=== PATIENT | male | born 1950 | race Caucasian/White ===

== ENCOUNTER 2017-02-10 19:21 | Inpatient (IN) | payer SELFPAY ==
[2017-02-10 19:46] LABS: ADD MAN DIFF? NO
[2017-02-10 19:48] LABS: BASOPHILS % 0.2 % (0.0-2.0); EOSINOPHILS # 0.1 10^3/ul (0.0-0.5); EOSINOPHILS % 1.2 % (0.0-7.0); HEMATOCRIT 42.8 % (42.0-52.0); HEMOGLOBIN 14.8 g/dl (14.0-18.0); LYMPHOCYTES # 1.1 10^3/ul (0.8-2.9); LYMPHOCYTES % 9.1 % (15.0-51.0); MEAN CORPUSCULAR HEMOGLOBIN 30.8 pg (29.0-33.0); MEAN CORPUSCULAR HGB CONC 34.6 g/dl (32.0-37.0); MONOCYTE # 0.7 10^3/ul (0.3-0.9); MONOCYTES % 6.1 % (0.0-11.0); NEUTROPHIL # 9.7 10^3/ul (1.6-7.5); NEUTROPHILS % 83.1 % (39.0-77.0); PLATELET COUNT 178 10^3/UL (140-415); RED BLOOD COUNT 4.81 10^6/ul (4.70-6.10); RED CELL DISTRIBUTION WIDTH 12.9 % (11.5-14.5)
[2017-02-10 19:48] LABS: WHITE BLOOD COUNT 11.7 10^3/ul (4.8-10.8)
[2017-02-10] MEDS: SOD CHLORIDE 0.9% 500 ML IV (19:52)
[2017-02-10 20:03] LABS: PARTIAL THROMBOPLASTIN TIME 21.3 Sec (25.0-35.0); PROTIME 13.3 Sec (11.9-14.9)
[2017-02-10 20:10] LABS: ANION GAP 16 (8-16); BLOOD UREA NITROGEN 17 mg/dl (7-20); CALCIUM 9.3 mg/dl (8.4-10.2); CARBON DIOXIDE 27 mmol/L (21-31); CHLORIDE 102 mmol/L (97-110); CREATININE 1.24 mg/dl (0.61-1.24); GLUCOSE 128 mg/dl (70-220); POTASSIUM 3.5 mmol/L (3.5-5.1); SODIUM 141 mmol/L (135-144)
[2017-02-10 20:22] LABS: TROPONIN-I < 0.012 ng/ml (0.00-0.12)
[2017-02-10] MEDS ORDERED: ACETAMINOPHEN 325 MG TAB PO (21:30)
[2017-02-10] MEDS ORDERED: ONDANSETRON 4 MG INJ IV (21:30)
[2017-02-10 21:58] LABS: D-DIMER 602.73 ng/ml (<460)
[2017-02-10 22:13] LABS: C-REACTIVE PROTEIN < 0.5 mg/dl (0.0-0.9)
[2017-02-10 22:54] LABS: ERYTHROCYTE SEDIMENTATION RATE 8 mm/Hr (0-20)
[2017-02-11] MEDS ORDERED: DOCUSATE SODIUM 100 MG CAP PO
[2017-02-11] MEDS ORDERED: NACL 0.9% 3 ML SYG IV
[2017-02-11] MEDS ORDERED: ACETAMINOPHEN 325 MG TAB PO
[2017-02-11] MEDS ORDERED: BISACODYL (EC) 5 MG TAB PO
[2017-02-11] MEDS ORDERED: NITROGLYCERIN (SL) 0.4 MG TAB SL
[2017-02-11] MEDS: HEPARIN 5,000 UNIT/0.5 ML VIAL SC ×2 (00:26→06:10)
[2017-02-11 01:40] LABS: CREATINE KINASE 150 IU/L (23-200)
[2017-02-11 01:54] LABS: CK INDEX 1.3; CK-MB 1.93 ng/ml (0.0-2.4); TROPONIN-I < 0.012 ng/ml (0.00-0.12)
[2017-02-11] MEDS: IOHEXOL 100 ML (03:23)
[2017-02-11] MEDS: SOD CHLORIDE 0.9% 100 ML (03:23)
[2017-02-11 07:59] LABS: ADD MAN DIFF? NO
[2017-02-11 08:16] LABS: BASOPHILS % 0.2 % (0.0-2.0); EOSINOPHILS # 0.1 10^3/ul (0.0-0.5); EOSINOPHILS % 1.5 % (0.0-7.0); HEMATOCRIT 37.6 % (42.0-52.0); HEMOGLOBIN 13.1 g/dl (14.0-18.0); LYMPHOCYTES # 1.2 10^3/ul (0.8-2.9); LYMPHOCYTES % 13.6 % (15.0-51.0); MEAN CORPUSCULAR HEMOGLOBIN 30.9 pg (29.0-33.0); MEAN CORPUSCULAR HGB CONC 34.8 g/dl (32.0-37.0); MEAN CORPUSCULAR VOLUME 88.7 fl (82.0-101.0); MEAN PLATELET VOLUME 11.2 fl (7.4-10.4); MONOCYTE # 0.7 10^3/ul (0.3-0.9); MONOCYTES % 8.2 % (0.0-11.0); NEUTROPHIL # 6.5 10^3/ul (1.6-7.5); NEUTROPHILS % 76.1 % (39.0-77.0); PLATELET COUNT 170 10^3/UL (140-415); RED BLOOD COUNT 4.24 10^6/ul (4.70-6.10); RED CELL DISTRIBUTION WIDTH 13.2 % (11.5-14.5)
[2017-02-11 08:16] LABS: WHITE BLOOD COUNT 8.5 10^3/ul (4.8-10.8)
[2017-02-11 08:18] LABS: HEMOGLOBIN A1C 5.5 % (0-5.9)
[2017-02-11 08:25] LABS: CREATINE KINASE 131 IU/L (23-200)
[2017-02-11 08:34] LABS: ALANINE AMINOTRANSFERASE 42 IU/L (13-69); ALBUMIN 3.6 g/dl (3.3-4.9); ALBUMIN/GLOBULIN RATIO 1.16; ALKALINE PHOSPHATASE 111 IU/L (42-121); ANION GAP 17 (8-16); ASPARTATE AMINO TRANSFERASE 33 IU/L (15-46); BILIRUBIN,INDIRECT 0.6 mg/dl (0-1.1); BILIRUBIN,TOTAL 0.6 mg/dl (0.2-1.3); BLOOD UREA NITROGEN 14 mg/dl (7-20); CALCIUM 8.9 mg/dl (8.4-10.2); CARBON DIOXIDE 26 mmol/L (21-31); CHLORIDE 105 mmol/L (97-110); CHOL/HDL RATIO 4.8 RATIO; CHOLESTEROL 178 mg/dl (100-200); CREATININE 1.13 mg/dl (0.61-1.24); GLUCOSE 105 mg/dl (70-220); HDL CHOLESTEROL 37 mg/dl (30-78); LDL CHOLESTEROL,CALCULATED 121 mg/dl; MAGNESIUM 1.7 mg/dl (1.7-2.5); POTASSIUM 3.9 mmol/L (3.5-5.1); SODIUM 144 mmol/L (135-144); TOTAL PROTEIN 6.7 g/dl (6.1-8.1); TRIGLYCERIDES 102 mg/dl (0-149)
[2017-02-11 08:38] LABS: CK INDEX 1.1; CK-MB 1.38 ng/ml (0.0-2.4); TROPONIN-I 0.013 ng/ml (0.00-0.12)
== END 2017-02-11 12:27 | disposition left against medical advice (07) | DRG 312 ==
LOC: E/R 19:21 → TEL 21:31
PROVIDERS: Family Medicine
DX: R55 Syncope and collapse (principal)
CPT/HCPCS: 36415; 70450; 71010; 71275; 80048; 80053; 80061; 82550; 82553; 82962; 83036; 83735; 84443; 84484; 85025; 85378; 85610; 85651; 85730; 86140; 93005; 93306; 93880; 93970; 99291-25